=== PATIENT | female | born 1975 | race Asian ===

== ENCOUNTER 2019-07-05 16:59 | Emergency (ER) | payer OTHER ==
[~2019-07-05] VITALS: Ht 170.2 cm; Wt 99.8 kg
[2019-07-05 20:11] VITALS: BP 150/68; TEMP 98.6
== END 2019-07-05 20:11 | disposition home or self-care (01) ==
LOC: ED 16:59
DX: H57.9 Unspecified disorder of eye and adnexa (principal)
CPT/HCPCS: 81025; 99283

== ENCOUNTER 2019-12-06 06:24 | Emergency (ER) | payer OTHER | END 2019-12-06 07:09 | disposition home or self-care (01) | LOC: ED 06:24 | DX: R10.84 Generalized abdominal pain (principal) ==

== ENCOUNTER 2019-12-06 07:23 | Emergency (ER) | payer OTHER ==
[~2019-12-06] VITALS: Ht 170.2 cm; Wt 79.4 kg
[2019-12-06 08:01] LABS: PLATELET COUNT 288 K/uL (152-353)
[2019-12-06 08:04] LABS: POTASSIUM 3.3 mmol/L (3.6-5.2)
[2019-12-06 13:15] VITALS: BP 125/70; TEMP 98.2
== END 2019-12-06 13:15 | disposition still patient (30) ==
LOC: ED 07:23
PROVIDERS: Hospitalist
DX: K80.70 Calculus of gallbladder and bile duct without cholecystitis without obstruction (principal); R10.11 Right upper quadrant pain; R10.13 Epigastric pain
CPT/HCPCS: 36415; 80053; 81000; 81025; 82150; 83690; 85027; 96360; 96375; 99284; J1885; J2405; Q9963

== ENCOUNTER 2020-11-15 11:41 | Emergency (ER) | payer OTHER ==
[~2020-11-15] VITALS: Ht 170.2 cm; Wt 98.9 kg
[2020-11-15 12:25] VITALS: BP 118/75; TEMP 97.6
== END 2020-11-15 12:25 | disposition home or self-care (01) ==
LOC: ED 11:41
DX: R51.9 Headache, unspecified (principal); H11.001 Unspecified pterygium of right eye
CPT/HCPCS: 99281

== ENCOUNTER 2021-06-25 12:22 | Emergency (ER) | payer OTHER ==
[~2021-06-25] VITALS: Ht 170.2 cm; Wt 93.0 kg
[2021-06-25 12:28] VITALS: BP 110/55; TEMP 97.5
== END 2021-06-25 13:32 | disposition home or self-care (01) ==
LOC: ED 12:22
DX: G43.909 Migraine, unspecified, not intractable, without status migrainosus (principal)
CPT/HCPCS: 99281; J1200; J1885; J2405

== ENCOUNTER 2021-12-17 16:21 | Emergency (ER) | payer OTHER | END 2021-12-17 17:31 | disposition home or self-care (01) | LOC: ED 16:21 | DX: Z53.21 Procedure and treatment not carried out due to patient leaving prior to being seen by health care provider (principal) | CPT/HCPCS: 99281 ==